=== PATIENT | female | born 1970 | race Caucasian/White ===

== ENCOUNTER 2019-05-02 05:19 | Emergency (ER) | payer SELFPAY ==
[2019-05-02] MEDS ORDERED: KETOROLAC 30 MG/ML INJ ONE (05:54)
[2019-05-02] MEDS ORDERED: ONDANSETRON 4 MG/2 ML VIAL ONE (05:54)
[2019-05-02] MEDS ORDERED: NA CHLORIDE 0.9% 1,000 ML ONE (05:54)
[2019-05-02 06:08] LABS: Absolute Lymphocytes (CBC) 1.7 K/uL (0.7-4.9); Basophils % 0.9 % (0-1.3); Hematocrit 40.5 % (36.0-45.0); Lymphocytes % 17.1 % (15.3-44.8); MPV 7.9 fL (7.6-11.3); RBC Red Blood Cell Count 4.71 M/uL (3.86-4.86)
[2019-05-02] MEDS ORDERED: MORPHINE 4 MG/ML SYR ONE (06:24)
[2019-05-02 06:38] LABS: Albumin 3.6 g/dL (3.4-5.0); Bilirubin Direct 0.2 mg/dL (0-0.2); Bilirubin Total 0.6 mg/dL (0.2-1.0); Potassium 3.1 mmol/L (3.5-5.1); Protein, Total 7.4 g/dL (6.4-8.2)
--- NOTE | 2019-05-02 07:11 | ER ---
Nurse's Notes [facility] Name: Nelida Emerson Age: 48 yrs Sex: Female : 1970 Arrival Date: 05/02/2019 Time: 05:22 Bed 16 Private MD: Diagnosis: Calculus of kidney with calculus of ureter;Hypokalemia Presentation: 05/01 05:30 Chief complaint: Patient states: right sharp pain on my right side of abdomen. started rr5 last Friday. i throw up and having diarrhea i thought its just a gas i took Gas X but it did not help, today it gets worse so bad. denies urine problem. 05:30 Coronavirus screen: The patient has NOT traveled to a country currently being monitored rr5 by the [facility] within the last 14 days. Proceed with normal triage procedures. Ebola Screen: Patient negative for fever greater than or equal to 101.5 degrees Fahrenheit, and additional compatible Ebola Virus Disease symptoms Patient denies exposure to infectious person. Patient denies travel to an Ebola-affected area in the 21 days before illness onset. Initial Sepsis Screen: Does the patient meet any 2 criteria? No. Patient's initial sepsis screen is negative. Does the patient have a suspected source of infection? No. Patient's initial sepsis screen is negative. Risk Assessment: Do you want to hurt yourself or someone else? Patient reports no desire to harm self or others. Onset of symptoms was April 30, 2019. 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 - Social history:: Smoking status: unknown Patient/guardian denies using alcohol, street drugs. Screenin:42 Abuse screen: Denies threats or abuse. Denies injuries from another. Nutritional rr5 screening: No deficits noted. Tuberculosis screening: No symptoms or risk factors identified. Fall Risk IV access (20 points). Total Shaikh Fall Scale indicates No Risk (0-24 pts). Assessment: 05:30 General: Appears in no apparent distress. uncomfortable, ill, Behavior is calm, rr5 cooperative, appropriate for age. 05:30 Pain: Complains of pain in right flank Pain radiates to back Pain currently is 10 out rr5 of 10 on a pain scale. Quality of pain is described as sharp, Pain began 2-3 days ago. Is intermittent. Neuro: Level of Consciousness is awake, alert, obeys commands, Oriented to person, place, time, situation, Appropriate for age. Cardiovascular: Capillary refill < 3 seconds Patient's skin is warm and dry. Respiratory: Airway is patent Respiratory effort is even, unlabored, Respiratory pattern is regular, symmetrical. GI: Abdomen is round non-distended, Reports upper abdominal pain, diarrhea, gaseousness, nausea, vomiting. : Reports pain in right flank(s), Pain is 10 out of 10 on a pain scale. Denies burning with urination. EENT: No signs and/or symptoms were reported regarding the EENT system. Derm: Skin is intact, is healthy with good turgor, Skin temperature is warm. Musculoskeletal: Circulation, motion, and sensation intact. Capillary refill < 3 seconds. 06:20 Reassessment: Patient appears in no apparent distress at this time. Patient is alert, rr5 oriented x 3, equal unlabored respirations, skin warm/dry/pink. ED provider aware with order made and carried out. Patient states symptoms have not improved. 06:52 Reassessment: Patient appears in no apparent distress at this time. awaiting for rr5 result. Patient states symptoms have improved. Pain: Pain currently is 7 out of 10 on a pain scale. 07:29 Reassessment: Patient appears in no apparent distress at this time. Patient and/or ph family updated on plan of care and expected duration. Pain level reassessed. Patient is alert, oriented x 3, equal unlabored respirations, skin warm/dry/pink. D/C pending urine sample and ride home. 07:56 Reassessment: Patient appears in no apparent distress at this time. Patient and/or ph family updated on plan of care and expected duration. Pain level reassessed. Patient is alert, oriented x 3, equal unlabored respirations, skin warm/dry/pink. Pt d/c home w/ friend. Vital Signs: 05:30 BP 128 / 86; Pulse 91; Resp 20; Temp 99; Pulse Ox 99% ; Weight 83.91 kg; Height 5 ft. 6 rr5 in. (167.64 cm); Pain 10/10; 06:20 BP 116 / 57; Pulse 77; Resp 18; Pulse Ox 96% on R/A; Pain 10/10; rr5 07:30 BP 120 / 62; Pulse 78; Resp 18; Temp 97.8; Pulse Ox 99% on R/A; ph 05:30 Body Mass Index 29.86 (83.91 kg, 167.64 cm) rr5 ED Course: 05:22 Patient arrived in ED. es 05:30 Patient has correct armband on for positive identification. Placed in gown. Bed in low rr5 position. Call light in reach. Pulse ox on. NIBP on. 05:33 Pablo Chung RN is Primary Nurse. rr5 05:36 Triage completed. rr5 05:41 Arm band placed on right wrist. rr5 05:50 Brady Briscoe MD is Attending Physician. tw4 05:50 No provider procedures requiring assistance completed. Inserted saline lock: 20 gauge rr5 in left antecubital area, using aseptic technique. Blood collected. 06:21 CT Stone Protocol In Process Unspecified. EDMS 07:57 IV discontinued, intact, bleeding controlled, No redness/swelling at site. Pressure ph dressing applied. Administered Medications: 05:55 Drug: NS 0.9% 1000 ml Route: IV; Rate: 1 bolus; Site: left antecubital; rr5 07:58 Follow up: Response: No adverse reaction; IV Status: Completed infusion; IV Intake: ph 800ml 05:55 Drug: TORadol 30 mg Route: IVP; Site: left antecubital; rr5 06:24 Follow up: Response: No adverse reaction; Pain is unchanged, physician notified rr5 05:56 Drug: Zofran (Ondansetron) 4 mg Route: IVP; Site: left antecubital; rr5 06:24 Follow up: Response: No adverse reaction rr5 06:24 Drug: morphine 4 mg {Note: rass 0.} Route: IVP; Site: left antecubital; rr5 07:30 Follow up: Response: No adverse reaction; Pain is decreased ph 07:27 Drug: Potassium Effervescent Tablet 50 mEq Route: PO; ph 07:31 Follow up: Response: No adverse reaction ph Intake: 07:58 IV: 800ml; Total: 800ml. ph Outcome: 07:11 Discharge ordered by . tw4 07:56 Discharged to home ambulatory, with friend. ph 07:56 Condition: improved 07:56 Discharge instructions given to patient, Instructed on discharge instructions, follow up and referral plans. medication usage, Demonstrated understanding of instructions, follow-up care, medications, Prescriptions given X 4. 07:57 Patient left the ED. ph Signatures: Dispatcher [employer] Bhargavi Carballo Patricia RN RN Brady López MD MD tw4 Pablo Chung RN RN rr5
--- NOTE | 2019-05-02 07:11 | EDPHYS ---
Physician Documentation [facility] Name: Nelida Emerson Age: 48 yrs Sex: Female : 1970 Arrival Date: 05/02/2019 Time: 05:22 Bed 16 Private MD: ED Physician Brady Briscoe HPI: 05/01 06:15 This 48 yrs old Female presents to ER via Ambulatory with complaints of Flank tw4 Pain, Nausea. 06:15 The patient complains of pain in the right mid back. The pain radiates to the right tw4 upper quadrant. 06:16 Onset: The symptoms/episode began/occurred 2 day(s) ago. tw4 06:16 Modifying factors: The symptoms are alleviated by nothing. the symptoms are aggravated tw4 by nothing. Associated signs and symptoms: Pertinent positives: diarrhea, nausea, vomiting, Pertinent negatives: dizziness, dysuria, fever, urinary frequency, headache, hematuria. Severity of pain: At its worst the pain was moderate in the emergency department the pain is unchanged. The patient has not experienced similar symptoms in the past. 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 - Social history:: Smoking status: unknown Patient/guardian denies using alcohol, street drugs. ROS: 06:16 Constitutional: Negative for fever, chills, and weight loss, Eyes: Negative for injury, tw4 pain, redness, and discharge, Cardiovascular: Negative for chest pain, palpitations, and edema, Respiratory: Negative for shortness of breath, cough, wheezing, and pleuritic chest pain, Back: Negative for injury and pain, MS/Extremity: Negative for injury and deformity, Skin: Negative for injury, rash, and discoloration, Neuro: Negative for headache, weakness, numbness, tingling, and seizure. 06:16 Abdomen/GI: Positive for abdominal pain, nausea and vomiting, nausea, vomiting, and diarrhea, nausea, vomiting, diarrhea, Negative for constipation, abdominal cramps, abdominal distension, anorexia, dysphagia, hematemesis, black/tarry stool, rectal pain, rectal bleeding. Exam: 06:16 Constitutional: This is a well developed, well nourished patient who is awake, alert, tw4 and in no acute distress. Head/Face: Normocephalic, atraumatic. Chest/axilla: Normal chest wall appearance and motion. Nontender with no deformity. No lesions are appreciated. Cardiovascular: Regular rate and rhythm with a normal S1 and S2. No gallops, murmurs, or rubs. Normal PMI, no JVD. No pulse deficits. Respiratory: Lungs have equal breath sounds bilaterally, clear to auscultation and percussion. No rales, rhonchi or wheezes noted. No increased work of breathing, no retractions or nasal flaring. 06:16 Back: No spinal tenderness. No costovertebral tenderness. Full range of motion. Skin: Warm, dry with normal turgor. Normal color with no rashes, no lesions, and no evidence of cellulitis. MS/ Extremity: Pulses equal, no cyanosis. Neurovascular intact. Full, normal range of motion. Neuro: Awake and alert, GCS 15, oriented to person, place, time, and situation. Cranial nerves II-XII grossly intact. Motor strength 5/5 in all extremities. Sensory grossly intact. Cerebellar exam normal. Normal gait. 06:16 Abdomen/GI: Inspection: abdomen appears normal, Bowel sounds: diminished, Palpation: moderate abdominal tenderness, in the epigastric area and right upper quadrant. Vital Signs: 05:30 BP 128 / 86; Pulse 91; Resp 20; Temp 99; Pulse Ox 99% ; Weight 83.91 kg; Height 5 ft. 6 rr5 in. (167.64 cm); Pain 10/10; 06:20 BP 116 / 57; Pulse 77; Resp 18; Pulse Ox 96% on R/A; Pain 10/10; rr5 07:30 BP 120 / 62; Pulse 78; Resp 18; Temp 97.8; Pulse Ox 99% on R/A; ph 05:30 Body Mass Index 29.86 (83.91 kg, 167.64 cm) rr5 MDM: 05:50 Patient medically screened. tw4 16 01:25 Differential diagnosis: nephrolithiasis, pyelonephritis, UTI. Data reviewed: vital tw4 signs, nurses notes. Data interpreted: Pulse oximetry: Interpretation: normal. Counseling: I had a detailed discussion with the patient and/or guardian regarding: the historical points, exam findings, and any diagnostic results supporting the discharge/admit diagnosis. 01:25 Medication response: morphine markedly relieved the patient's pain. Symptoms have tw4 improved. Response to treatment: the patient's symptoms have markedly improved after treatment, and as a result, I will discharge patient. Special discussion: Based on the patient's Hx, exam, and Dx evaluation, there is no indication for emergent surgery or inpatient Tx. It is understood by the patient/guardian that if the Sx's persist or worsen they need to return immediately for re-evaluation. I discussed with the patient/guardian in detail that at this point there is no indication for admission to the hospital. It is understood, however, that if the symptoms persist or worsen the patient needs to return immediately for re-evaluation. 05/01 05:41 Order name: Basic Metabolic Panel; Complete Time: 07:13 05/01 07:13 Interpretation: Normal except: K 3.1; GFR 78. 05/01 05:41 Order name: CBC with Diff; Complete Time: 07:13 05/01 07:13 Interpretation: Within normal limits. 05/01 05:41 Order name: Creatinine for Radiology; Complete Time: 07:13 05/01 07:13 Interpretation: Within normal limits: CRE 0.81; GFR 76. 05/01 05:41 Order name: Hepatic Function; Complete Time: 07:13 [facility] 05/01 07:13 Interpretation: Normal except: GLOB 3.8; A/G 0.9. 05/01 05:41 Order name: Lipase; Complete Time: 07:13 [facility] 05/01 07:13 Interpretation: Within normal limits: LIP 95. 05/01 07:46 Order name: Urine Microscopic Only jr8 05/01 05:41 Order name: IV Saline Lock; Complete Time: 05:57 rr5 05/01 05:49 Order name: CT Stone Protocol [facility] 05/01 07:52 Order name: Urine Dipstick--Ancillary (enter results) 05/01 05:41 Order name: Labs collected and sent; Complete Time: 05:57 rr5 Administered Medications: 05/01 05:55 Drug: NS 0.9% 1000 ml Route: IV; Rate: 1 bolus; Site: left antecubital; rr5 07:58 Follow up: Response: No adverse reaction; IV Status: Completed infusion; IV Intake: ph 800ml 05:55 Drug: TORadol 30 mg Route: IVP; Site: left antecubital; rr5 06:24 Follow up: Response: No adverse reaction; Pain is unchanged, physician notified rr5 05:56 Drug: Zofran (Ondansetron) 4 mg Route: IVP; Site: left antecubital; rr5 06:24 Follow up: Response: No adverse reaction rr5 06:24 Drug: morphine 4 mg {Note: rass 0.} Route: IVP; Site: left antecubital; rr5 07:30 Follow up: Response: No adverse reaction; Pain is decreased ph 07:27 Drug: Potassium Effervescent Tablet 50 mEq Route: PO; ph 07:31 Follow up: Response: No adverse reaction ph Disposition: 05/02/19 07:11 Discharged to Home. Impression: Calculus of kidney with calculus of ureter, Hypokalemia. - Condition is Stable. - Discharge Instructions: Potassium Content of Foods, Kidney Stones, Renal Colic, Hypokalemia. - Prescriptions for Ibuprofen 800 mg Oral Tablet - take 1 tablet by ORAL route every 8 hours As needed take with food; 30 tablet. Tylenol- Codeine #3 300-30 mg Oral Tablet - take 2 tablet by ORAL route every 6 hours As needed; 6 tablet. Flomax 0.4 mg Oral Capsule, Sust. Release 24 hr - take 1 capsule by ORAL route once daily 1/2 hour following the same meal each day; 30 capsule. Cipro 500 mg Oral Tablet - take 1 tablet by ORAL route every 12 hours for 7 days; 14 tablet. - Work release form, Medication Reconciliation Form, Thank You Letter, Antibiotic Education, Prescription Opioid Use form. - Follow up: Private Physician; When: Upon discharge from the Emergency Department; Reason: Recheck today's complaints, Continuance of care, Re-evaluation by your physician. - Problem is new. - Symptoms have improved. Signatures: Dispatcher [employer] EDNan Ruiz RN RN Brady Briscoe MD MD tw4 Pablo Chung RN RN rr5 Corrections: (The following items were deleted from the chart) 06:16 06:15 Onset: The symptoms/episode began/occurred today, tw4 tw4 07:14 07:11 05/02/2019 07:11 Discharged to Home. Impression: Calculus of kidney with calculus tw4 of ureter. Condition is Stable. Forms are Medication Reconciliation Form, Thank You Letter, Antibiotic Education, Prescription Opioid Use. Follow up: Private Physician; When: Upon discharge from the Emergency Department; Reason: Recheck today's complaints, Continuance of care, Re-evaluation by your physician. Problem is new. Symptoms have improved. tw4 07:57 07:14 05/02/2019 07:11 Discharged to Home. Impression: Calculus of kidney with calculus ph of ureter; Hypokalemia. Condition is Stable. Discharge Instructions: Kidney Stones, Renal Colic. Prescriptions for Ibuprofen 800 mg Oral Tablet - take 1 tablet by ORAL route every 8 hours As needed take with food; 30 tablet, Tylenol-Codeine #3 300-30 mg Oral Tablet - take 2 tablet by ORAL route every 6 hours As needed; 6 tablet, Flomax 0.4 mg Oral Capsule, Sust. Release 24 hr - take 1 capsule by ORAL route once daily 1/2 hour following the same meal each day; 30 capsule. and Forms are Medication Reconciliation Form, Thank You Letter, Antibiotic Education, Prescription Opioid Use. Follow up: Private Physician; When: Upon discharge from the Emergency Department; Reason: Recheck today's complaints, Continuance of care, Re-evaluation by your physician. Problem is new. Symptoms have improved. tw4
[2019-05-02] MEDS ORDERED: POTASSIUM 25 MEQ EFFERV TAB ONE (07:19)
[2019-05-02 08:02] LABS: Urine Blood 1+ (NEG); Urine Glucose NEGATIVE (NEG); Urine Protein NEGATIVE (NEG); Urine pH 6.5 (5.0-7.0)
[2019-05-02 08:28] VITALS: BP 120/62; TEMP 97.8; O2SAT 99
[2019-05-02 08:38] LABS: Calcium Oxalate Crystals- Ur FEW (NONE SEEN); Urine Bacteria 20-50 /HPF (<20); Urine Culture Reflex Order REFLEXED; Urine RBC <5 /HPF (NONE SEEN)
--- NOTE | 2019-05-03 10:00 | RAD REPORT ---
EXAM DESCRIPTION: CT - Stone Protocol - 05/02/2019 7:07 am CLINICAL HISTORY: The patient is 48 years old and is Female; FLANK PAIN TECHNIQUE: Axial computed tomography images of the abdomen and pelvis without intravenous contrast. Sagittal and coronal reformatted images were created and reviewed. This CT exam was performed usi ng one or more of the following dose reduction techniques: automated exposure control, adjustment o f the mA and/or kV according to patient size, and/or use of iterative reconstruction technique. COMPARISON: No relevant prior studies available. FINDINGS: LUNG BASES: Minimal dependent densities in the lung bases are present. ABDOMEN: LIVER: The liver is enlarged. GALLBLADDER AND BILE DUCTS: Surgical clips are present in the right upper quadrant, consistent w ith previous cholecystectomy. PANCREAS: Unremarkable. No ductal dilation. SPLEEN: Unremarkable. ADRENALS: Unremarkable. No mass. KIDNEYS AND URETERS: Bilateral parenchymal renal and right intrarenal calcifications are present . Mild right hydroureteronephrosis is present. No obstructing calculus is seen. STOMACH AND BOWEL: The stomach is decompressed. The small bowel is normal in caliber. Stool is p resent throughout colon. There is no mucosal thickening or evidence of bowel obstruction. PELVIS: APPENDIX: The appendix is normal in caliber without surrounding inflammation. BLADDER: Unremarkable. No stones. REPRODUCTIVE: The patient is status post hysterectomy. ABDOMEN and PELVIS: INTRAPERITONEAL SPACE: Unremarkable. No free air. No significant fluid collection. BONES/JOINTS: Minimal degenerative change of the spine is present. SOFT TISSUES: The soft tissues are normal. VASCULATURE: Unremarkable. No abdominal aortic aneurysm. LYMPH NODES: Unremarkable. No enlarged lymph nodes. IMPRESSION: 1. Mild right hydroureteronephrosis without obstructing calculus. Findings may be seco ndary to recently passed stone. 2. Bilateral nephrolithiasis. Electronically signed by: Ami Kern MD 05/02/2019 6:40 AM CDT Due to temporary technical issues with the PACS/Fluency reporting system, reports are being signed by the in house radiologist as a courtesy to ensure prompt reporting. The interpreting radiologist is f milenaly responsible for the content of the report.
== END 2019-05-02 07:57 | disposition home or self-care (01) ==
LOC: ER 05:19
DX: N20.2 Calculus of kidney with calculus of ureter (principal); E87.6 Hypokalemia; E03.9 Hypothyroidism, unspecified; Z85.41 Personal history of malignant neoplasm of cervix uteri
CPT/HCPCS: 36415; 74176; 76377; 80048; 80076; 81003; 81015; 83690; 85025; 87086; 87088; 96361; 96374; 96375; 99284; J2405; J7030